=== PATIENT | female | born 1985 | race Caucasian/White ===

== ENCOUNTER → 2021-08-31 | Emergency (ER) | payer SELFPAY | END | disposition home or self-care (01) | LOC: ER1 02:42 | DX: M06.842 Other specified rheumatoid arthritis, left hand (principal); M06.841 Other specified rheumatoid arthritis, right hand; M06.851 Other specified rheumatoid arthritis, right hip; M06.862 Other specified rheumatoid arthritis, left knee; M06.861 Other specified rheumatoid arthritis, right knee; M06.822 Other specified rheumatoid arthritis, left elbow; M06.821 Other specified rheumatoid arthritis, right elbow; Z79.899 Other long term (current) drug therapy | CPT/HCPCS: 99283 ==

== ENCOUNTER 2021-09-02 02:41 | Emergency (ER) | payer SELFPAY | END 2021-09-02 03:59 | disposition home or self-care (01) | LOC: ER1 02:41 | DX: M06.9 Rheumatoid arthritis, unspecified (principal); G89.29 Other chronic pain; Z88.2 Allergy status to sulfonamides; Z88.5 Allergy status to narcotic agent; Z88.6 Allergy status to analgesic agent | CPT/HCPCS: 99283 ==